=== PATIENT | female | born 1980 | race Caucasian/White ===

== ENCOUNTER 2020-11-08 10:25 | Inpatient (IN) | payer OTHER ==
[~2020-11-08] VITALS: Ht 167.6 cm; Wt 95.2 kg
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
--- NOTE | 2020-11-09 06:38 | OR ---
[facility] [address] [place], [place] [address] Signed DATE OF OPERATION: 11/08/2020 SURGEON: Ramos Suarez MD PREOPERATIVE DIAGNOSIS: Bilateral posterior subcutaneous thoracic abscesses. POSTOPERATIVE DIAGNOSIS: Bilateral posterior subcutaneous thoracic abscesses. PROCEDURES: 1. Incision and drainage with debridement of the bilateral posterior subcutaneous thoracic abscesses. 2. Bilateral wound cultures. ESTIMATED BLOOD LOSS: None. FINDINGS: The right abscess measured 13 x 18 cm and the left abscess measured 8 x 5 cm. INDICATIONS: Manju is a 40-year-old obese female, uncontrolled diabetes. She moved up from [place] in August of 2020. She let her diabetic medications . She now has uncontrolled diabetes. She has developed bilateral posterior subcutaneous thoracic abscesses along the bra line, both are out lateral, the right is larger than the left. When the pain got so bad and the pus was running down her back, she finally decided to come to the emergency room with her friend for evaluation. She said the tachycardias is quite common. She has had her blood pressure is usually low, but it has been high in the emergency room. The lactic acid is 1.6. I have been asked to see her urgently in the emergency room. Amazingly, she did not look systemically ill or toxic. There was some amount of pus in her bed. I explained to Manju and her friend Jc that we needed to take her to the operating room under general anesthetic, so we could open and debride those areas and we packed that with Dakin soaked gauze. She is going to need to be in the hospital at least a few days for IV antibiotics and have our Internal Medicine Service help get her blood sugars and the heart rate under control. After that, she will be able to go home with continued dressing changes. Apparently, her friend Jc has some experience with wound care. She understands both wounds to be left open to heal in secondarily. She knows there is risk of surgery including, but not limited to bleeding, infection, scarring, change in contour of the skin as well as possible need Electronically Signed By: RAMOS SUAREZ MD 11/09/20 0638 PATIENT NAME: MANJU GUTIERREZ OPERATIVE REPORT DATE OF : 84 REPORT #: [id number] PHYSICIAN: RAMOS SUAREZ MD PCP: NO PRIMARY CARE PHYSICIAN REPORT IS CONFIDENTIAL AND NOT TO BE RELEASED WITHOUT AUTHORIZATION [facility] [address] [place] [id number] Signed for additional surgeries or recurrent abscesses in the same or other locations. She had expressed understanding and wished to proceed. PROCEDURE NOTE: Manju was taken into the operating room and placed under general endotracheal tube anesthesia. She was rotated into the prone Fausto knife position with appropriate padding and monitoring. She had been given preoperative antibiotics along with subcutaneous heparin. We did not place SCDs. Trinidad catheter had been inserted with return of clear yellow urine. She was then prepped and draped in the usual sterile fashion. Each abscess was opened sharply with the electrocautery. We took wound cultures separately in the right and left abscesses. All the pus was evacuated and all the necrotic tissue was debrided with the help of the cautery and Ray-Parker gauze. We injected local anesthetic into the wound. Each wound was then packed with full strength Dakin's soaked gauze. This was covered with dry ABDs and tape. Manju was then rotated into the supine position onto her hospital bed and the Trinidad catheter was left in place. She was weaned from anesthesia, extubated in the OR, and taken to the recovery room in stable condition. Ramos Suarez MD ALB/MODL /[id number] cc: Ramos Suarez MD Copies: RAMOS SUAREZ MD ~ Electronically Signed By: RAMOS SUAREZ MD 11/09/20 0638 PATIENT NAME: MANJU GUTIERREZ OPERATIVE REPORT DATE OF : 84 REPORT #: [id number] PHYSICIAN: RAMOS SUAREZ MD PCP: NO PRIMARY CARE PHYSICIAN REPORT IS CONFIDENTIAL AND NOT TO BE RELEASED WITHOUT AUTHORIZATION
[2020-11-11] MEDS ORDERED: DOXYCYCLINE HY100 MG PO (09:24)
[2020-11-11] MEDS ORDERED: NORCO 10-325 T1 EACH PO (09:26)
[2020-11-11] MEDS ORDERED: SALINE SOLUTIO355 ML IRRIGATION (09:29)
[2020-11-11] MEDS ORDERED: NYSTATIN1 EAC2 MISC (09:31)
[2020-11-11] MEDS ORDERED: ADVOCATE SYRIN1 EAC1 MISC (10:32)
[2020-11-11] MEDS ORDERED: NOVOLIN 70100 UNIT/1 SUB-Q (10:32)
[2020-11-11] MEDS ORDERED: SODIUM CHLORI1000 ML TOP (10:46)
[2020-11-11] MEDS ORDERED: NYSTATIN1 EAC2 TOP (10:47)
[2020-11-11] MEDS ORDERED: ADVIL200 MG PO (10:48)
[2020-11-11] MEDS ORDERED: TYLENOL325 MG PO (10:48)
--- NOTE | 2020-11-12 06:21 | DS ---
[facility] [address] [place], [place] [address] Signed ADMISSION DATE: 11/08/2020 DISCHARGE DATE: 11/11/2020 FINAL DIAGNOSES: 1. Bilateral subcutaneous posterior thoracic abscesses. 2. Diabetes. PROCEDURES: 1. Incision and drainage of the bilateral abscesses. 2. Bilateral wound cultures growing MRSA. HISTORY OF PRESENT ILLNESS: Manju is a 40-year-old obese diabetic female who has moved up from [place]. She let her diabetic medications . She then developed two abscesses under the bra line on her back out laterally. The right being 13 x 8 cm, the left being 8 x 5 cm. She had come to the emergency room for evaluation. I had been asked to admit her as a general surgeon on-call. HOSPITAL COURSE: Manju was admitted as above and taken to the operating room that same day. Both wounds were opened and cleaned and packed with Dakin's solution. She has been on vancomycin along with cefepime and Flagyl. Now that the MRSA has come back, she is down to vancomycin. It is sensitive to doxycycline. We also had the Internal Medicine Service see her in consultation and they have been helping with her insulin dosing. She has made excellent progress. She is with her lifelong friend Jc. He has experience as a wound care and is able to help her at home with the wound packing. DISCHARGE PLANS AND MEDICATIONS: Manju is going to be discharged to home with doxycycline 100 mg one tablet p.o. b.i.d. for 7 days. She will be given [place] 10/325 one tablet p.o. q.6 hours p.r.n. severe postoperative pain. She can use Tylenol, ibuprofen otherwise for pain. She can purchase that [id number]. We are going to dispense normal saline, so she can use that for her wound packing and cover with some dry gauze and tape. She will do that twice a day and shower into that area with soap and water. She will continue the nystatin powder to her skin folds for her fungal infection. We will have her back in our office in about 7 to 14 days for review. Her insulin dosing will be per the Internal Medicine Service. She has expressed understanding and agrees to above plan. Electronically Signed By: RAMOS CANCHOLA MD 11/12/2021 PATIENT NAME: MANJU GUTIERREZ DISCHARGE SUMMARY DATE OF : 84 REPORT #: [id number] PHYSICIAN: RAMOS CANCHOLA MD PCP: NO PRIMARY CARE PHYSICIAN REPORT IS CONFIDENTIAL AND NOT TO BE RELEASED WITHOUT AUTHORIZATION [address] [address] Signed Ramos Cnachola MD ALB/MODL /[id number] cc: MD Ramos Gustafson MD Copies: LEYLA HER MD, ANDREW L MD ~ Electronically Signed By: RAMOS CANCHOLA MD 11/12/2021 PATIENT NAME: MANJU GUTIERREZ DISCHARGE SUMMARY DATE OF : 84 REPORT #: [id number] PHYSICIAN: RAMOS CANCHOLA MD PCP: NO PRIMARY CARE PHYSICIAN REPORT IS CONFIDENTIAL AND NOT TO BE RELEASED WITHOUT AUTHORIZATION
== END 2020-11-11 13:20 | disposition home or self-care (01) | DRG 988 ==
LOC: ED 10:25 → MS 12:59
PROVIDERS: ADMIT Colon & Rectal Surgery; ATTEND Colon & Rectal Surgery
PROC: 0J970ZZ Drainage of Back Subcutaneous Tissue and Fascia, Open Approach (ICD-10-PCS; principal; 2020-11-08 14:00)
DX: E11.52 Type 2 diabetes mellitus with diabetic peripheral angiopathy with gangrene (principal); I96 Gangrene, not elsewhere classified; L02.212 Cutaneous abscess of back [any part, except buttock and flank]; Z20.822 Contact with and (suspected) exposure to COVID-19; B95.62 Methicillin resistant Staphylococcus aureus infection as the cause of diseases classified elsewhere; E11.65 Type 2 diabetes mellitus with hyperglycemia; F43.10 Post-traumatic stress disorder, unspecified; E28.2 Polycystic ovarian syndrome; E83.39 Other disorders of phosphorus metabolism; E11.42 Type 2 diabetes mellitus with diabetic polyneuropathy; Z91.14 Patient's other noncompliance with medication regimen; Z88.0 Allergy status to penicillin; Z88.5 Allergy status to narcotic agent
CPT/HCPCS: 00300; 36415; 80048; 80053; 80202; 83036; 83605; 83735; 84100; 84134; 85025; 96374; 99284-25; C9803; J0330; J0692; J1100; J1170; J1644; J1650; J1815; J1885; J2250; J2405; J2704; J2765; J3010; J3370; J3480; J7030; J7060; J7121; U0003

== ENCOUNTER 2021-04-02 16:07 | Emergency (ER) | payer OTHER ==
[~2021-04-02] VITALS: Ht 170.2 cm; Wt 98.4 kg
[~2021-04-02 16:07] MED LIST: ADVIL200 MG PO; ADVOCATE SYRIN1 EAC1 MISC; DOXYCYCLINE HY100 MG PO; NORCO 10-325 T1 EACH PO; NOVOLIN 70100 UNIT/1 SUB-Q; NYSTATIN1 EAC2 MISC; NYSTATIN1 EAC2 TOP; SALINE SOLUTIO355 ML IRRIGATION; SODIUM CHLORI1000 ML TOP; TYLENOL325 MG PO
[2021-04-02] MEDS ORDERED: LORATADINE10 MG PO (16:45)
[2021-04-02] MEDS ORDERED: LISINOPRIL10 MG PO (16:46)
[2021-04-02] MEDS ORDERED: PRAZOSIN HCL1 MG PO (16:46)
[2021-04-02] MEDS ORDERED: OXYBUTYNIN CHLO15 MG PO (16:46)
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
--- NOTE | 2021-04-02 22:02 | EKG ---
[facility] [address] [facility] [place], [place] [address] Signed Sinus tachycardia Otherwise normal ECG No previous ECGs available Confirmed by SANJEEV HOLT MD ([id number]) on 04/02/2021 10:02:34 PM Electronically Signed By: SANJEEV HOLT MD 04/02/212201 PATIENT NAME: ABBY GUTIERREZ Electrocardiogram DATE OF : 84 PHYSICIAN: SANJEEV HOLT MD REPORT #: [id number] REPORT IS CONFIDENTIAL AND NOT TO BE RELEASED WITHOUT AUTHORIZATION
== END 2021-04-02 21:28 | disposition home or self-care (01) ==
LOC: ED 16:07
DX: R51.9 Headache, unspecified (principal); V49.9XXA Car occupant (driver) (passenger) injured in unspecified traffic accident, initial encounter; E11.9 Type 2 diabetes mellitus without complications; G40.909 Epilepsy, unspecified, not intractable, without status epilepticus; Z88.0 Allergy status to penicillin; Z88.5 Allergy status to narcotic agent; Z79.4 Long term (current) use of insulin; Z79.899 Other long term (current) drug therapy
CPT/HCPCS: 70450; 71045; 71046; 72040; 80053; 81001; 83690; 85025; 90471; 90715; 93005; 93010; 99285-25; A9270-GY